=== PATIENT | female | born 1950 | race Caucasian/White ===

== ENCOUNTER 2017-01-14 11:26 | Inpatient (IN) ==
[2017-01-14] MEDS ORDERED: SODIUM CHLORIDE 0.9% 1,000 ML IV STA (12:18)
[2017-01-14] MEDS ORDERED: ONDANSETRON 4 MG/2 ML VIAL IV STA (12:18)
[2017-01-14 13:00] LABS: Basophils # 0.1 10*3/uL (0.0-0.2); Basophils % 0.6 % (0.0-0.8); Eosinophils # 0.3 10*3/uL (0.0-0.87); Eosinophils % 3.9 % (0.00-10.9); Hematocrit 40.2 VOL% (35.7-47.0); Hemoglobin 14.4 GM/DL (12.0-16.0); Immature Granulocytes % 0.2 %; Immature Granulocytes Absolute 0.02 #; Lymphocytes # 2.6 10*3/uL (1.4-4.0); Lymphocytes % 31.7 % (21.3-54.2); Mean Corpuscular HGB Conc 35.8 GM/DL (32-36); Mean Corpuscular Hemoglobin 33 PG (27-34); Mean Corpuscular Volume 92.4 FL (87-102); Mean Platelet Volume 9.4 FL (9.6-12.0); Monocytes # 0.7 10*3/uL (0.11-0.8); Monocytes % 8.9 % (1.7-12.7); Neutrophils # 4.5 10*3/uL (1.4-7.4); Neutrophils % 54.7 % (38.7-73.9); Platelet Count 168 T/CUMM (130-400); Red Blood Count 4.35 MC/CUMM (3.8-5.5); Red Cell Distribution Width 12.3 % (9.3-17.3); White Blood Count 8.2 T/CUMM (4-12)
--- NOTE | 2017-01-14 13:02 | CT Report ---
Referring physician: Javid Guerrero EXAM: CT abdomen and pelvis with contrast DATE: January 14, 2017 COMPARISON: None REASON: Lower abdominal pain with nausea, history of uterine cancer TECHNIQUE: Axial images of the abdomen and pelvis were obtained after administration of 100 cc of Omnipaque 350 IV contrast. Coronal and sagittal reformatted images were also provided. Total DLP is 1165.7 mGy*cm. FINDINGS: Lower thorax: The lung bases are clear. Mild varices are seen adjacent to the distal esophagus. ABDOMEN: Liver: There is mild diffuse decreased attenuation of the liver, suggesting mild hepatic steatosis. No suspicious hepatic lesion is identified. Gallbladder and bile ducts: The gallbladder is unremarkable. No biliary duct dilatation is present. Pancreas: Unremarkable. Spleen: Unremarkable. Adrenals: Unremarkable. Kidneys and ureters: There is mild cortical scarring at the right kidney and a subcentimeter cyst at the upper pole of the left kidney. The ureters are unremarkable as visualized. PELVIS: Bladder: Unremarkable. Reproductive: The patient is status post hysterectomy. The ovaries are also not identified. ABDOMEN AND PELVIS: Bowel: There is no evidence of bowel obstruction. The colon is poorly distended and difficult to evaluate, but there could be areas of colitis, particularly at the sigmoid colon. Follow-up is recommended. There are a few colonic diverticula but no clear evidence of diverticulitis. Appendix: The appendix is not identified. Vasculature: The abdominal aorta is normal in size. There is mild scattered calcified plaque at the arteries. Peritoneum/retroperitoneum: No free air is seen. There is fat stranding and trace free fluid within the pelvis. Lymph nodes: No suspicious adenopathy is seen. Abdominal/pelvic wall: Unremarkable. Bones: There is degenerative change and mild scoliosis at the spine. No acute osseous process is seen. IMPRESSION: 1. The colon is poorly distended and difficult to evaluate. However, there may be areas of colitis, especially at the sigmoid colon. Follow-up would be helpful. 2. There is fat stranding and trace free fluid within the pelvis. This could be related to previous treatment of the patient's reported uterine cancer or a nonspecific inflammatory process. 3. Varices adjacent to the distal esophagus. 4. Mild cortical scarring at the right kidney and small left renal cyst. 5. Mild hepatic steatosis. The CT exam was performed using one or more of the following dose reduction techniques: Automated exposure control and adjustment of the mA and/or kV according to patient size. PROCEDURE INTERPRETED AT [facility] DEPARTMENT OF RADIOLOGY Final Report Signed by: Dr. Conchita Tobar
--- NOTE | 2017-01-14 13:13 | XRay Report ---
XR chest 1V portable Indication: Generalized abdominal pain Comparison: Chest x-ray dated September 26, 2016 Technique: Single frontal view of the chest. Findings: The cardiomediastinal silhouette is stable in configuration. Chronic/granulomatous change without focal consolidation, pleural effusion, or pneumothorax. Visualized osseous and surrounding soft tissue structures appear grossly unchanged. IMPRESSION: Stable chest x-ray without acute cardiopulmonary process demonstrated. PROCEDURE INTERPRETED AT [facility] DEPARTMENT OF RADIOLOGY Final Report Signed by: Dr Raudel Mayorga
[2017-01-14] MEDS ORDERED: ONDANSETRON 4 MG/2 ML VIAL ONE (13:25)
[2017-01-14 13:34] LABS: Albumin 3.7 G/DL (3.4-5.0); Bilirubin,Total 1.1 MG/DL (0.2-1.0); Calcium 9.2 MG/DL (8.5-10.1); Osmolality,Calculated 279.3 MOS/KG (273-304); Potassium 3.5 MMOL/L (3.5-5.1); Total Protein 7.7 G/DL (6.4-8.3)
--- NOTE | 2017-01-14 14:58 | EKG Report ---
Stationary ECG Study [facility] ER Test Date: 01/14/2017 1:08:59 PM Pat Name: KORIN GREENBERG Department: Room: Gender: F Release Coordinator: : 1950 Requested by: Javid Knapp Order Number: [id number] Reading MD: DAVON HAN Intervals [place] Rate: 71 P: 49 OK: 193 QRS: 15 QRSD: 98 T: 42 QT: 412 QTc: 435 Interpretive Statements SINUS RHYTHM Electronically Signed On 01-15-17 17:05:24 CDT by DAVON HAN [email or web address]
--- NOTE | 2017-01-14 15:46 | Emergency Department Note ---
Delia Blum Hilary, am scribing for, and in the presence of, Javid Guerrero MD 12:19. Yolanda Blum Phillip K, MD, personally performed the services described in this documentation, ascribed by Nisha Lin in my presence, and it is both accurate and complete [id number] . Arrival - Arrival Chief Complaint: Abdominal / Flank Pain Stated Complaint: severe lower abd pain ED Nursing Triage Note: c/o lower abd pain onset 3 days ago. +n/v. pt has been being treated for a uti. Mode of Arrival: Ambulatory Limitations: No Limitations Source: Patient, RN Notes Reviewed Time Seen by Provider: 01/14/17 11:43 - History of Present Illness HPI Narrative: Pt is a 66 y/o white female presenting to the ED with c/o constant lower abdominal pain which onset 3 days ago. Pt confirms nausea, lower abdominal pain which worsens with movement, decreased appetite but denies vomiting, blood in the stool or fever. Pt has a PMHx of NIDDM and IDDM. No other complaints or problems stated in the ED. Onset (ago): day(s) Consistency: constant Severity: severe Severity scale (1-10): 4 Allergies/Adverse Reactions: Allergies Allergy/AdvReac Type Severity Reaction Status Date / Time Sulfa (Sulfonamide Allergy Unknown Unknown/Unable Verified 02/13/15 09:07 Antibiotics) to obtain Home Medications: Home Medications Medication Instructions Recorded Confirmed Type Citalopram [CeleXA] 40 mg PO QAM 01/25/15 01/14/17 History metFORMIN [Glucophage] 500 mg PO BID 01/25/15 01/14/17 History rOPINIRole [Requip] 0.5 mg PO TID 01/25/15 01/14/17 History Insulin NPH/Regular 70/30 [HumuLIN 28 unit SUBCUT QPM 01/14/17 01/14/17 History 70/30] Insulin NPH/Regular 70/30 [HumuLIN 52 unit SUBCUT QAM 01/14/17 01/14/17 History 70/30] Review of System - Review of System 12 point system: reviewed and no additional remarkable complaints except as stated - Review of System Constitutional: Present: other (decreased appetite). Absent: fever Gastrointestinal: Present: abdominal pain, nausea, diarrhea. Absent: vomiting, hematochezia Medical,Surgical,& Family Hx - Medical History Psychological: History of: Anxiety Disorders, Depression Neurology: History of: Peripheral Neuropathy No history of: Seizures HEENT: History of: Ear Problem (HEARING AIDE), Eye Problem (GLASSES) Endocrine: History of: Diabetes Mellitus (IDDM) Rheumatology: History of;: Fibromyalgia Respiratory: No history of: Respiratory Problems (FLU OR PNEUMONIA VACCINATION) Gastrointestinal: History of: GI Problems (CONSTIPATION) Musculoskeletal: History of: Back/Neck Problems (NECK PAIN-TPC DR. JONES), Degenerative Disk Disease (CERVICAL), Musculoskeletal Problems (CERVICAL AND SPINAL STENOSIS/RADICULITIS/ARTHRITIS) Comment Only: Herniated Disk (CERVICAL DISC BULGE) Reproductive: History of: Reproductive Problems (HORMONE REPLACEMENT THERAPY) - Surgical History HEENT Surgeries: Surgical HX of: Tonsilectomy & Adenoidectomy Reproductive Surgeries: Surgical HX of;: Breast Surgery (BREAST BX), Genitourinary Surgery (BLADDER TACT), Hysterectomy (WITH BSO) Orthopedic Surgeries: Surgical HX of;: Spinal Surgery (BACK SURGERY/FOR IVAN ) - Social History Smoking Status: Unknown if ever smoked Frequency of Alcohol Use: None Type of Drug Use: None Exam Vital Signs: Vital Signs Temperature 97.2 F L 01/14/17 11:34 Pulse Rate 92 H 01/14/17 11:34 Respiratory Rate 18 01/14/17 11:34 Blood Pressure 133/97 01/14/17 11:34 O2 Sat by Pulse Oximetry 96 01/14/17 11:34 - General General appearance: alert, in no apparent distress - Head Head exam: Present: atraumatic, normocephalic - Eye Eye exam: Present: normal appearance, PERRL, EOMI - ENT ENT exam: Present: mucous membranes moist, TM's normal bilaterally. Absent: mucous membranes dry - Neck Neck exam: Present: full ROM, trachea midline. Absent: tenderness - Chest Chest inspection: Present: symmetric chest wall rise. Absent: tenderness - Respiratory Respiratory exam: Present: normal lung sounds bilaterally. Absent: respiratory distress - Cardiovascular Cardiovascular exam: Present: regular rate, normal rhythm, normal heart sounds. Absent: murmur, rubs, gallop - Abdominal Exam Abdominal exam: Present: soft, tenderness (tenderness to RUQ and lower quadrants bilaterally ), hypoactive bowel sounds, Kebede's sign - Extremities Exam Extremities exam: Present: full ROM. Absent: tenderness - Back Exam Back exam: Present: full ROM, tenderness - Neurological Exam Neurological exam: Present: alert, oriented X3, CN II-XII intact. Absent: motor sensory deficit - Psychiatric Psychiatric exam: Present: normal affect, normal mood - Skin Skin exam: Present: warm, dry, intact, normal color. Absent: rash Course Course Narrative: We obtained a HIDA scan on this patient and there was no filling of the gallbladder noted an hour and a half out. Patient discussed with Dr. Harmon who will see the patient and will admit for possible cholecystectomy in the morning. Results - Labs CBC & BMP: 01/14/17 12:51 01/14/17 12:51 Lab Results: I have reviewed the patients labs Labs: Laboratory Tests 01/14/17 12:36 POC Creatinine 0.75 POC Estimated GFR (eGFR) > 60 Laboratory Tests 01/14/17 01/14/17 12:51 12:51 WBC 8.2 RBC 4.35 Hgb 14.4 Hct 40.2 MPV 9.4 L Sodium 141 Potassium 3.5 Chloride 105 Carbon Dioxide 28 Total Bilirubin 1.10 H AST 48 H ALT 78 H Alkaline Phosphatase 44 L Globulin 4.0 H Albumin/Globulin Ratio 0.9 L - Diagnostic Findings Procedure: Chest x-ray: report reviewed by me (Stable chest x-ray without acute cardiopulmonary process demonstrated. ), CT Abdomen and Pelvis: report reviewed by me (1. The colon is poorly distended and difficult to evaluate. However, there may be areas of colitis, especially at the sigmoid colon. 2. There is fat stranding and trace free fluid within the pelvis. This could be related to previous treatment of the pateient's reported uterine cancer or a nonspecific inflammatory process. 3. Varices adjacent to the distal esophagus. 4. Mild cortical scarring at the right kidney and small left renal cyst. 5. Mild Hepatic steatosis. ) Disposition Clinical Impression: Acalculous cholecystitis, Possible colitis Case discussed with: patient Disposition: Still a Patient Condition: Guarded Additional Instructions: Admit to Dr. Harmon.
[2017-01-14] MEDS ORDERED: ONDANSETRON 4 MG/2 ML VIAL IV PRN (15:51)
[2017-01-14] MEDS ORDERED: HYDROmorphone 2 MG/1 ML VIAL IV PRN (15:51)
[2017-01-14] MEDS ORDERED: ACETAMINOPHEN 325 MG TABLET PO PRN (15:51)
--- NOTE | 2017-01-14 15:55 | Nuclear Medicine Report ---
HIDA scan. Indication: Right upper quadrant abdominal pain. Following the intravenous administration of 5 mCi technetium 99 M Choletec, hepatic excretion is prompt and uniform. Bowel activity can be seen by 20 minutes. At 105 minutes, a very faint amount of uptake is seen in the gallbladder fossa. Impression: Minimal gallbladder activity seen at a delayed timeframe. This could be due to a high grade partial obstruction of the cystic duct with acute cholecystitis, or the sequelae of chronic cholecystitis. PROCEDURE INTERPRETED AT [facility] DEPARTMENT OF RADIOLOGY Final Report Signed by: Dr. Shanice Goldstein
--- NOTE | 2017-01-14 18:17 | General Surg History&Physical ---
Assessment and Plan (1) Acalculous cholecystitis Status: Acute Assessment and plan: This patient has a an occluded cystic duct with minimal filling of the gallbladder even a 2 hour delayed films. This is consistent with cholecystitis based on her exam. She does have hemochromatosis but she has been followed by [employer] here in town and has had phlebotomy intermittently to remove iron. She does not aware of any cirrhosis in her liver. She does not have any ascites on her CT scan but she does have some esophageal varices. Her albumin is normal and her INR is pending. I have also added a C. difficile and a urinalysis with urine culture based on her lower abdominal complaints. She does have areas of possible colitis on her CT scan this may be consistent with her history of antibiotic use and she may have an antibiotic associated colitis with diarrhea. I have recommended that we go ahead and remove her gallbladder at this time since it is causing problems and at the time of the surgery think it would be reasonable to take a look at her colon to see if it looks inflamed to assist with diagnosis of colitis. I will also plan on doing a cholangiogram because of some abnormal LFTs on her initial presentation and we will repeat these tomorrow. I do not see anything that makes her a prohibitive risk for surgery that would require nonoperative management of her gallbladder. I did discuss the risk of liver failure with the patient with general anesthesia. Also discussed standard risks of cholecystectomy. In particular, I discussed the risk of bleeding, infection, hernias of the abdominal wall, injury to the intestines or liver, pancreatitis, dropped or retained stones in the abdomen, bile leak, and bile duct injury. The patient's questions have been answered. Current Visit: Yes History of Present Illness Chief complaint: Abdominal pain History of present illness: Ms. Pulido is a 66 year old female with a history of hemochromatosis and high blood pressure who was admitted to the hospital with abdominal pain for the last 2-3 days. She has chronic diarrhea and intermittent blood with straining sounding like hemorrhoidal bleeding. This has not changed at all. She was recently treated for urinary tract infection 2 weeks ago with an antibiotic by her primary care provider. Her diarrhea has not worsened. She also has chronic right upper quadrant pain. She was evaluated in the ER and found to have some abnormal LFTs as well as a HIDA scan that demonstrated poor filling of the gallbladder consistent with cholecystitis. The CT scan showed no ductal dilation of the biliary system. The gallbladder was noninflamed on the CT scan. The patient did have some hepatic steatosis and esophageal varices on the CT scan. Her platelet count was normal. INR was not done in the ER. Urine has not been evaluated yet. Home Medications Medication Instructions Recorded Confirmed Type Citalopram [CeleXA] 40 mg PO QAM 01/25/15 01/14/17 History metFORMIN [Glucophage] 500 mg PO BID 01/25/15 01/14/17 History rOPINIRole [Requip] 0.5 mg PO TID 01/25/15 01/14/17 History Insulin NPH/Regular 70/30 [HumuLIN 28 unit SUBCUT QPM 01/14/17 01/14/17 History 70/30] Insulin NPH/Regular 70/30 [HumuLIN 52 unit SUBCUT QAM 01/14/17 01/14/17 History 70/30] Allergies Allergy/AdvReac Type Severity Reaction Status Date / Time Sulfa (Sulfonamide Allergy Unknown Unknown/Unable Verified 02/13/15 09:07 Antibiotics) to obtain Medical,Surgical,& Family Hx - Medical History Psychological: History of: Anxiety Disorders, Depression Neurology: History of: Peripheral Neuropathy No history of: Seizures HEENT: History of: Ear Problem (HEARING AIDE), Eye Problem (GLASSES) Endocrine: History of: Diabetes Mellitus (IDDM) Rheumatology: History of;: Fibromyalgia Respiratory: No history of: Respiratory Problems (FLU OR PNEUMONIA VACCINATION) Gastrointestinal: History of: GI Problems (CONSTIPATION) Musculoskeletal: History of: Back/Neck Problems (NECK PAIN-TPC DR. JONES), Degenerative Disk Disease (CERVICAL), Musculoskeletal Problems (CERVICAL AND SPINAL STENOSIS/RADICULITIS/ARTHRITIS) Comment Only: Herniated Disk (CERVICAL DISC BULGE) Reproductive: History of: Reproductive Problems (HORMONE REPLACEMENT THERAPY) - Surgical History HEENT Surgeries: Surgical HX of: Tonsilectomy & Adenoidectomy Reproductive Surgeries: Surgical HX of;: Breast Surgery (BREAST BX), Genitourinary Surgery (BLADDER TACT), Hysterectomy (WITH BSO) Orthopedic Surgeries: Surgical HX of;: Spinal Surgery (BACK SURGERY/FOR IVAN ) - Social History Smoking Status: Unknown if ever smoked Frequency of Alcohol Use: None Type of Drug Use: None Exam - Constitutional Vitals: Period Temp Pulse Resp BP Sys/Roy Pulse Ox Last 24 Hr 97.2 F-98 F 76-92 18-20 133-136/84-97 95-96 General appearance: no acute distress, over weight - Head Head exam: Present: normal inspection, normocephalic - Eye Eye exam: Present: EOMI. Absent: scleral icterus Pupils: Present: MICHELLE - ENT ENT exam: Present: normal exam Mouth exam: Present: normal external inspection, normal voice - Neck Neck exam: Present: normal inspection, trachea midline - Respiratory Respiratory exam: Present: clear to auscultation bilaterally. Absent: accessory muscle use, chest wall tenderness - Cardiovascular Cardiovascular exam: Present: RRR. Absent: systolic murmur, tachycardia - GI/Abdominal GI/Abdominal exam: Present: Kebede's sign, tenderness, soft. Absent: rebound - Extremities Exam Extremities exam: Present: normal inspection, normal capillary refill - Back Exam Back exam: Present: normal inspection - Neurological Exam Neurological exam: Present: alert, oriented X3 Speech: Present: normal - Skin Skin exam: Present: normal color, warm - Constitutional Constitutional: Present: as per HPI - EENT Nose, mouth and throat: Present: as per HPI - Cardiovascular Cardiovascular: Present: as per HPI - Respiratory Respiratory: Present: as per HPI - Gastrointestinal Gastrointestinal: Present: as per HPI - Genitourinary Genitourinary: Present: as per HPI - Musculoskeletal Musculoskeletal: Present: as per HPI - Neurological Neurological: Present: as per HPI - Endocrine Endocrine: Present: as per HPI Hematologic/Lymphatic: Present: as per HPI Results - Labs CBC & BMP: 01/14/17 12:51 01/14/17 12:51 - Diagnostic Findings Procedure: CT Abdomen and Pelvis: image reviewed by me, report reviewed by me
[2017-01-14] MEDS ORDERED: ENOXAPARIN 40 MG/0.4 ML SYRINGE SUBCUT SCH (18:30)
[2017-01-14] MEDS: SODIUM CHLORIDE 0.45% 1,000 ML IV SCH (18:58)
[2017-01-14] MEDS: CIPROFLOXACIN INJ 400 MG in PREMIX 1 EACH IV SCH (18:59)
[2017-01-14] MEDS: metroNIDAZOLE INJ 500 MG in PREMIX 1 EACH IV SCH (19:48)
[2017-01-14] MEDS ORDERED: NAPROXEN 500 MG TABLET PO PRN (22:43)
[2017-01-15] MEDS: SODIUM CHLORIDE 0.45% 1,000 ML IV SCH ×4 (00:48→16:00)
[2017-01-15] MEDS: metroNIDAZOLE INJ 500 MG in PREMIX 1 EACH IV SCH ×3 (02:27→18:40)
[2017-01-15 02:28] LABS: Apearance,Urine CLEAR (Clear); Bacteria,Urine Occasional /HPF (Few); Bilirubin,Urine Negative (Negative); Blood, Urine Negative (Negative); Glucose,Urine (UA) 50 mg/dL (Negative); Ketones,Urine Negative (Negative); Mucus,Urine Occasional /LPF (Occasional); Nitrite,Urine Negative (Negative); Protein,Urine Negative; RBC,Urine <1 /HPF (0-4); Squamous Epithelial Cell,Urine Occasional /HPF (0-10); Urine Color Yellow (Yellow); Urine Specific Gravity 1.023 (1.001-1.035); Urine Urobilinogen < 2.0 EU/DL (0.2-1.0); WBC,Urine <1 /HPF (0-6)
[2017-01-15 06:26] LABS: Basophils % 0.6 % (0.0-0.8); Eosinophils # 0.3 10*3/uL (0.0-0.87); Eosinophils % 4.4 % (0.00-10.9); Hematocrit 37.2 VOL% (35.7-47.0); Hemoglobin 12.9 GM/DL (12.0-16.0); Immature Granulocytes % 0.5 %; Immature Granulocytes Absolute 0.03 #; Lymphocytes # 2.3 10*3/uL (1.4-4.0); Lymphocytes % 34.2 % (21.3-54.2); Mean Corpuscular HGB Conc 34.7 GM/DL (32-36); Mean Corpuscular Hemoglobin 32 PG (27-34); Mean Corpuscular Volume 92.1 FL (87-102); Mean Platelet Volume 9.7 FL (9.6-12.0); Monocytes # 0.5 10*3/uL (0.11-0.8); Neutrophils # 3.5 10*3/uL (1.4-7.4); Neutrophils % 52.3 % (38.7-73.9); Platelet Count 165 T/CUMM (130-400); Red Blood Count 4.04 MC/CUMM (3.8-5.5); Red Cell Distribution Width 12.4 % (9.3-17.3); White Blood Count 6.6 T/CUMM (4-12)
[2017-01-15 06:40] LABS: Partial Thromboplastin Time 27.3 SECS (0-40)
[2017-01-15 07:01] LABS: Albumin 3.3 G/DL (3.4-5.0); Bilirubin,Direct 0.2 MG/DL (0.0-0.20); Bilirubin,Total 0.8 MG/DL (0.2-1.0); Calcium 8.8 MG/DL (8.5-10.1); Osmolality,Calculated 282.1 MOS/KG (273-304); Potassium 3.6 MMOL/L (3.5-5.1); Total Protein 6.7 G/DL (6.4-8.3)
[2017-01-15] MEDS: CIPROFLOXACIN INJ 400 MG in PREMIX 1 EACH IV SCH ×2 (07:26→20:15)
--- NOTE | 2017-01-15 07:47 | General Surgery Progress Note ---
Assessment and Plan (1) Acalculous cholecystitis Status: Acute Assessment and plan: The patient's bilirubin has normalized. Her C. difficile was negative. Urinalysis shows no urinary tract infection. I believe she has a mild antibiotic associated diarrhea as well as acute cholecystitis. I recommended laparoscopic cholecystectomy and will proceed with this today. Current Visit: Yes Subjective Patient reports: Present: no new complaints, feels better, still having pain, afebrile Narrative: The patient is still having right upper quadrant pain with nausea Exam - Constitutional Vitals: Period Temp Pulse Resp BP Sys/Roy Pulse Ox Last 24 Hr 96.9 F-98.5 F 71-92 18-20 111-144/57-97 92-96 General appearance: no acute distress, over weight - Head Head exam: Present: normal inspection, normocephalic - Eye Eye exam: Present: EOMI. Absent: scleral icterus Pupils: Present: MICHELLE - ENT ENT exam: Present: normal exam Mouth exam: Present: normal external inspection, normal voice - Neck Neck exam: Present: normal inspection, trachea midline - Respiratory Respiratory exam: Present: clear to auscultation bilaterally. Absent: accessory muscle use, chest wall tenderness - Cardiovascular Cardiovascular exam: Present: RRR. Absent: systolic murmur, tachycardia - GI/Abdominal GI/Abdominal exam: Present: normal bowel sounds, Kebede's sign, tenderness, soft. Absent: distended, rebound - Extremities Exam Extremities exam: Present: normal inspection, normal capillary refill - Back Exam Back exam: Present: normal inspection - Neurological Exam Neurological exam: Present: alert, oriented X3 Speech: Present: normal - Skin Skin exam: Present: normal color, warm Results - Labs CBC & BMP: 01/15/17 06:15 01/15/17 06:15
[2017-01-15] MEDS ORDERED: TISSUE ADHESIVE 1 EACH APPLICATOR TOP ONE (09:43)
--- NOTE | 2017-01-15 11:16 | Operative Note ---
Date of procedure: 01/15/17 Pre-op diagnosis: Acute cholecystitis Post-op diagnosis: same Procedure: Preoperative diagnosis Acute cholecystitis Postoperative diagnosis Same Procedures performed Diagnostic laparoscopy Laparoscopic cholecystectomy with intraoperative cholangiogram Findings Acute and chronic cholecystitis was seen. The critical view of safety was obtained prior to placing clips on the cystic duct and cystic artery. Diagnostic laparoscopy revealed cirrhosis of the liver or at least macronodular scarring. No biopsies were taken. Pictures were taken and placed in the chart. There was no inflammation there was significant in the colon in the sigmoid area. Complications None apparent Specimen Gallbladder Anesthesia GETA Blood loss 5 mL Indications Acute cholecystitis. The risks, benefits, and alternatives of the operation were discussed with the patient in detail, and the expected outcomes were reviewed. In particular, the risk of bowel injury, liver injury, bile duct leak and bile duct injury, as well as pancreatitis and retained or drop stones were discussed in detail. All the patient's questions were answered. She like to proceed with the operation. Description of procedure The patient was taken to the operating room and transferred to the operating table in the supine position. Pressure points were padded and SCDs were placed to bilateral lower extremities. General endotracheal anesthesia was administered. The abdomen was prepped chlorhexidine and draped sterilely. Preoperative antibiotics were administered, a timeout was performed. The abdomen was entered in a supraumbilical location of the Veress needle. The skin incision was made in the supraumbilical location with a 11 blade scalpel after local anesthetic was administered. Umbilical stalk was grasped with a penetrating towel clip. A Veress needle was used to enter the peritoneal cavity confirmed by double click technique. Aspiration was negative. Saline drop test confirmed intraperitoneal location. The abdomen was insufflated to 15 mmHg with an initial insufflation pressure of 2 mmHg. The Veress needle was removed and a 5 mm trocar was placed blindly. The towel clip was removed. Diagnostic laparoscopy was performed. There is no evidence of Veress needle or trocar injury. The patient was placed in reverse Trendelenburg and left side rolled down position. Under direct visualization, and after local anesthetic was administered, an 11 mm midepigastric trocar and 2 right subcostal 5 mm trochars were placed. Diagnostic laparoscopy was performed. There is no inflammation that was significant in the sigmoid colon and appeared normal. There was cirrhosis or at least macronodular scar tissue of the liver itself and pictures were taken and placed in the chart. The gallbladder was acutely inflamed and stuck to the duodenum and the adhesions were taken down using sharp dissection. The gallbladder was grasped at the fundus and infundibulum. The cystic plate peritoneum was dissected into the critical view of safety was obtained. The cystic artery was clipped twice centrally and once laterally and the cystic duct infundibulum junction of the gallbladder was clipped with a laparoscopic Endo Clip device. A cystic ductotomy was made with scissors and a cholangiogram catheter was inserted. Cholangiogram revealed risk flow into the duodenum with good visualization of the intrahepatic biliary radicles and normal cystic duct anatomy. There were no filling defects seen. The cholangiogram catheter was removed and the cystic duct was clipped twice centrally. The gallbladder was removed from the gallbladder fossa using hook electrocautery. The gallbladder was placed in a Endo Catch retrieval bag through the 11 mm trocar and removed through the trocar with no significant fascial extension of the incision. The gallbladder fossa was suction irrigated until the effluent was clear. The CO2 was released from the abdomen and the trochars were removed. The skin incisions were closed with 4-0 Monocryl subcuticular suture and sterile skin glue. The patient was awakened from anesthesia and transferred to recovery. Postoperative plan Advance diet as tolerated Pain control Anesthesia: PONCHO, local Surgeon / Physician: Shorty Harmon Estimated blood loss: minimal Specimens: other (gallbladder) Condition: stable Disposition: PACU Results - Labs CBC & BMP: 01/15/17 06:15 01/15/17 06:15 Discharge Plan - Discharge Medications No Action Citalopram [CeleXA] 40 mg PO QAM rOPINIRole [Requip] 0.5 mg PO TID metFORMIN [Glucophage] 500 mg PO BID Insulin NPH/Regular 70/30 [HumuLIN 70/30] 28 unit SUBCUT QPM Insulin NPH/Regular 70/30 [HumuLIN 70/30] 52 unit SUBCUT QAM - Follow Up or Referral - Forms/Instructions
--- NOTE | 2017-01-15 11:25 | Anesthesia Post-Op ---
Anesthesia Post OP - Post Ansesthetic Evaluation Patient seen in post op: Yes Resp: within normal limits CV: within normal limits Mental: within normal limits Temp: within normal limits Basv-[id number]-[id number]: within normal limits Nausea and Vomiting: within normal limits Pain: within normal limits
[2017-01-15] MEDS ORDERED: ONDANSETRON 4 MG/2 ML VIAL ONE ×2 (11:27→11:43)
[2017-01-15] MEDS ORDERED: DESFLURANE 1 UNIT/15 MINUTE INH ONE (11:27)
[2017-01-15] MEDS ORDERED: ACETAMINOPHEN 1,000 MG/100 ML VIAL IV ONE (11:27)
[2017-01-15] MEDS ORDERED: MIDAZOLAM 2 MG/2 ML VIAL ONE (11:27)
[2017-01-15] MEDS ORDERED: NEOSTIGMINE 10 MG/10 ML VIAL ONE (11:27)
[2017-01-15] MEDS ORDERED: GLYCOPYRROLATE 0.4 MG/2 ML VIAL ONE (11:27)
[2017-01-15] MEDS ORDERED: PROPOFOL 200 MG/20 ML VIAL IV ONE (11:27)
[2017-01-15] MEDS ORDERED: fentaNYL 100 MCG/2 ML VIAL ONE (11:27)
[2017-01-15] MEDS ORDERED: ROCURONIUM 100 MG/10 ML VIAL IV ONE (11:28)
[2017-01-15] MEDS ORDERED: HYDROmorphone 2 MG/1 ML VIAL IV PRN (11:29)
[2017-01-15] MEDS ORDERED: ONDANSETRON 4 MG/2 ML VIAL IV PRN (11:29)
[2017-01-15] MEDS ORDERED: LACTATED RINGERS 1,000 ML IV SCH (11:30)
[2017-01-15] MEDS ORDERED: HYDROmorphone 2 MG/1 ML VIAL ONE (11:43)
[2017-01-15] MEDS ORDERED: GLUCAGON 1 MG VIAL IM PRN (12:52)
[2017-01-15] MEDS ORDERED: DEXTROSE 50% 25 GM/50 ML VIAL IV PRN (12:52)
--- NOTE | 2017-01-15 12:52 | Fluoroscopy Report ---
[place] cholangiogram in surgery Indication: Pain Comparison: None Technique: 68 intraoperative fluoroscopic views of the biliary tree. Fluoroscopy time 30 seconds. Findings: Images submitted during intraoperative cholangiogram. Free flow of contrast noted into the duodenum without definite filling defect. Please see operative report for details. IMPRESSION: As above. PROCEDURE INTERPRETED AT [facility] DEPARTMENT OF RADIOLOGY Final Report Signed by: Dr Raudel Mayorga
[2017-01-15] MEDS: INSULIN REGULAR 100 UNIT/ML SUBCUT SCH ×3 (13:55→22:21)
[2017-01-15] MEDS: PANTOPRAZOLE 40 MG TABLET PO SCH (17:21)
[2017-01-15] MEDS: rOPINIRole 0.25 MG TABLET PO SCH ×3 (17:25→22:56)
[2017-01-16] MEDS: SODIUM CHLORIDE 0.45% 1,000 ML IV SCH ×2 (00:49→05:10)
[2017-01-16] MEDS: metroNIDAZOLE INJ 500 MG in PREMIX 1 EACH IV SCH (02:13)
[2017-01-16 05:22] LABS: Basophils % 0.4 % (0.0-0.8); Eosinophils # 0.2 10*3/uL (0.0-0.87); Eosinophils % 4.2 % (0.00-10.9); Hematocrit 35.1 VOL% (35.7-47.0); Hemoglobin 12.3 GM/DL (12.0-16.0); Immature Granulocytes % 0.2 %; Immature Granulocytes Absolute 0.01 #; Lymphocytes % 34.3 % (21.3-54.2); Mean Corpuscular Hemoglobin 33 PG (27-34); Mean Corpuscular Volume 92.9 FL (87-102); Mean Platelet Volume 10.5 FL (9.6-12.0); Monocytes # 0.5 10*3/uL (0.11-0.8); Monocytes % 8.1 % (1.7-12.7); Neutrophils % 52.8 % (38.7-73.9); Platelet Count 160 T/CUMM (130-400); Red Blood Count 3.78 MC/CUMM (3.8-5.5); Red Cell Distribution Width 12.3 % (9.3-17.3); White Blood Count 5.7 T/CUMM (4-12)
[2017-01-16 05:49] LABS: Calcium 8.4 MG/DL (8.5-10.1); Osmolality,Calculated 281.3 MOS/KG (273-304); Potassium 3.7 MMOL/L (3.5-5.1)
[2017-01-16] MEDS: CIPROFLOXACIN INJ 400 MG in PREMIX 1 EACH IV SCH (05:50)
--- NOTE | 2017-01-16 07:35 | Discharge Summary ---
Hospital Course - Hospital Course Hospital Course: The patient was admitted with acute cholecystitis and antibiotic associated diarrhea with minimal colitis. She was treated with IV antibiotics and taken to the operating room for laparoscopic cholecystectomy. Cholangiogram was normal. She did have some macronodular scar tissue of the liver suggestive of cirrhosis especially with her history of hemochromatosis. Pictures were taken and placed in her chart. The following day her labs were stable and she is doing well tolerating her diet with decreased pain in the lower abdomen and minimal pain in the right upper quadrant. She was discharged home on a 2 week course of Cipro and Flagyl and follow-up with me in 2 weeks and we will also get copies of her chart sent to her family educator who phlebotomized her for hemochromatosis. Diagnosis - Discharge Diagnosis (1) Acalculous cholecystitis Status: Acute Discharge Plan - Discharge Data Disposition: Disch To Home/Self Care Condition at Discharge: Stable Discharge Diet: advance to your usual diet Activity: no lifting Hygiene: may shower Weight Bearing at Discharge: weight bear as tolerated Driving: other (Do not drive or operate heavy machinery for at least 24 hours and after you are off of narcotic pain medications.) Contact your physician if you experience:: fever over 101, Difficulty voiding, Redness or swelling, Nausea/Vomiting, Shortness of breath, Bleeding, pain uncontrolled by pain medications Wound / Dressing Care Instructions: It is okay to shower. Do not scrub the incision aggressively or submerge it under water. - Discharge Medications New HYDROcodone/ACETAMIN 7.5-325 [[place] 7.5-325] 1 tablet PO Q4H PRN #30 tablet PRN Reason: Pain Moderate (4-7) Ciprofloxacin Tab [Cipro Tab] 500 mg PO Q12HR #28 tablet metroNIDAZOLE TAB [Flagyl Cap/Tab] 500 mg PO TID #42 tablet Continue Citalopram [CeleXA] 40 mg PO QAM rOPINIRole [Requip] 0.5 mg PO TID metFORMIN [Glucophage] 500 mg PO BID Insulin NPH/Regular 70/30 [HumuLIN 70/30] 28 unit SUBCUT QPM Insulin NPH/Regular 70/30 [HumuLIN 70/30] 52 unit SUBCUT QAM - Follow Up or Referral Follow Up: Shorty Harmon MD [Physician] - 2 Weeks - Forms/Instructions Exam - Constitutional Vitals: Period Temp Pulse Resp BP Sys/Roy Pulse Ox Last 24 Hr 97.2 F-98.9 F 61-83 16-20 107-148/54-84 92-99 General appearance: no acute distress, over weight - Head Head exam: Present: normal inspection, normocephalic - Eye Eye exam: Present: EOMI. Absent: scleral icterus Pupils: Present: MICHELLE - ENT ENT exam: Present: normal exam - Neck Neck exam: Present: normal inspection - Respiratory Respiratory exam: Present: clear to auscultation bilaterally. Absent: accessory muscle use, chest wall tenderness - Cardiovascular Cardiovascular exam: Present: regular rate and rhythm. Absent: systolic murmur , tachycardia - GI/Abdominal GI/Abdominal exam: Present: tenderness (Expected incisional tenderness. Minimal lower quadrant tenderness improved from yesterday.), soft, other (The incisions are clean, dry, and intact.). Absent: rebound - Extremities Exam Extremities exam: Present: normal inspection, normal capillary refill - Back Exam Back exam: Present: normal inspection - Neurological Exam Neurological exam: Present: alert, oriented X3 - Psychiatric Psychiatric exam: Present: normal affect, normal mood - Skin Skin exam: Present: normal color, warm Discharge Results Labs on day of discharge: Labs from last 24 hours 01/16/17 01/16/17 01/16/17 07:08 04:21 04:21 WBC 5.7 RBC 3.78 L Hgb 12.3 Hct 35.1 L MCV 92.9 MCH 33 MCHC 35.0 RDW 12.3 Plt Count 160 MPV 10.5 Neut % (Auto) 52.8 Lymph % (Auto) 34.3 [place] % (Auto) 8.1 Eos % (Auto) 4.2 Baso % (Auto) 0.4 Neut # (Auto) 3.0 Lymph # (Auto) 2.0 [place] # (Auto) 0.5 Eos # (Auto) 0.2 Baso # (Auto) 0.0 Immature Gran % 0.2 Nucleated RBC % 0.0 Immature Gran # 0.01 Nucleated RBCs # 0.00 Sodium 141 Potassium 3.7 Chloride 107 Carbon Dioxide 25 Anion Gap 12.7 BUN 8 Creatinine 0.70 GFR Calculation 102 BUN/Creatinine Ratio 11.00 Glucose 155 H POC Glucose 167 H Calculated Osmolality 281.3 Calcium 8.4 L Magnesium 2.0 01/15/17 01/15/17 01/15/17 20:57 14:53 13:41 WBC RBC Hgb Hct MCV MCH MCHC RDW Plt Count MPV Neut % (Auto) Lymph % (Auto) [place] % (Auto) Eos % (Auto) Baso % (Auto) Neut # (Auto) Lymph # (Auto) [place] # (Auto) Eos # (Auto) Baso # (Auto) Immature Gran % Nucleated RBC % Immature Gran # Nucleated RBCs # Sodium Potassium Chloride Carbon Dioxide Anion Gap BUN Creatinine GFR Calculation BUN/Creatinine Ratio Glucose POC Glucose 212 H 152 H 186 H Calculated Osmolality Calcium Magnesium 01/15/17 09:44 WBC RBC Hgb Hct MCV MCH MCHC RDW Plt Count MPV Neut % (Auto) Lymph % (Auto) [place] % (Auto) Eos % (Auto) Baso % (Auto) Neut # (Auto) Lymph # (Auto) [place] # (Auto) Eos # (Auto) Baso # (Auto) Immature Gran % Nucleated RBC % Immature Gran # Nucleated RBCs # Sodium Potassium Chloride Carbon Dioxide Anion Gap BUN Creatinine GFR Calculation BUN/Creatinine Ratio Glucose POC Glucose 155 H Calculated Osmolality Calcium Magnesium DS: Provider Date of admission: 01/15/17 15:24 Primary care physician: Rebekah Birch NP Attending physician on admission: Shorty Harmon MD Consults: 01/14/17 18:14 Consult to Anesthesiology [CONS] Routine Consulting Provider: Reason for Anesthesiology: Pre-op Clearance Discharging clinician: Shorty Harmon MD Expected date of discharge: 01/16/17
[2017-01-16] MEDS ORDERED: metroNIDAZOLE 500 MG TABLET PO SCH (09:00)
[2017-01-16] MEDS ORDERED: CITALOPRAM 40 MG TABLET PO SCH (09:00)
[2017-01-16] MEDS ORDERED: CIPROFLOXACIN 500 MG TABLET PO SCH (09:00)
[2017-01-16] MEDS ORDERED: ENOXAPARIN 40 MG/0.4 ML SYRINGE SUBCUT SCH (09:00)
[2017-01-16] MEDS: PANTOPRAZOLE 40 MG TABLET PO SCH (10:05)
[2017-01-16] MEDS: INSULIN REGULAR 100 UNIT/ML SUBCUT SCH ×2 (10:06→11:30)
[2017-01-16] MEDS: rOPINIRole 0.25 MG TABLET PO SCH (10:11)
[2017-01-16 11:30] VITALS: BP 129/83
--- NOTE | 2017-01-16 13:28 | Pathology Report from [facility] ---
[facility] ACCESSION # : [id number] PATIENT NAME : Korin Greenberg ORDERING DR : Shorty Harmon MD CLINICAL HX: Cholecystitis POST-OP DX: Cholecystitis SPECIMEN INFO: Gallbaldder GROSS DESCRIPTION: The specimen is received in formalin labeled with the patients name and consists of an intact gallbladder measuring 6.5 x 3.7 cm. The serosa is smooth and pink-maddox. The wall averages 0.2 cm in thickness. The mucosal surface is velvety and maddox. The lumen is filled with yellow bile with no stones seen. [employer] sections submitted in one cassette. DIAGNOSIS FOR KORIN GREENBERG: GALLBLADDER, CHOLECYSTECTOMY: Chronic cholecystitis. COLLECTED DATE: 01/15/2017 [facility] REPORT DATE: 01/16/2017 ELECTRONICALLY SIGNED BY: Tristan Greene M.D. 01/16/2017 - 10:29:54 [id number]
== END 2017-01-16 12:50 | disposition home or self-care (01) | DRG 418 ==
LOC: N.EDINP 11:26 → N.ED 11:26 → N.3E 16:39
PROVIDERS: ADMIT Surgery; ATTEND Surgery
PROC: LAPCHOL (2017-01-15 10:10)